=== PATIENT | female | born 1980 | race Caucasian/White ===

== ENCOUNTER 2017-06-09 23:56 | Emergency (ER) | payer OTHER ==
[~2017-06-09] VITALS: Ht 160 cm; Wt 64.5 kg
[2017-06-10 00:16] VITALS: BP 173/119; PULSE 77; RESP 16; O2SAT 100
--- NOTE | 2017-06-10 01:17 | ED.REPORT ---
HPI-Dental/Mouth Prob Date of Service Jun 10, 2017 ED Provider: Ankush Flores MD Patient is 37 year old female who presents to the ED complaining of dental pain onset 2 weeks ago. Associated symptoms include difficulty eating, increased swelling and pain that radiates into her face. The patient reports that she saw her dentist a week ago and she was told they were unable to do anything with the tooth due to her high blood pressure. She was given and finished a course of Penicillin and Tylenol with Codeine. Nursing Notes Stated Complaint: TOOTH PAIN Chief Complaint: Dental Nursing Notes Reviewed: Yes Allergies: Coded Allergies: Sulfa (Sulfonamide Antibiotics) (Verified Allergy, Unknown, 06/10/17) lactose (Verified Allergy, Unknown, 06/10/17) sumatriptan (Verified Allergy, Unknown, 06/10/17) General Time Seen by MD: 01:05 Chief Complaint Tooth pain Hx Obtained From: Patient Arrived By: Walk-in Onset Occurred: More than a week ago... (2 weeks) Symptom Duration: Since onset Quality: Painful Radiation: : Face Severity: Current: Moderate Similar Sx Previous: Yes Past Medical History Past Medical History none reported Smoking History Unknown if Ever Smoker Ambulatory Status Independent Review of Systems Constitutional: Denies: Chills, Fever Ears / Nose / Throat: Reports: Mouth pain, Denies: Throat swelling Respiratory: Denies: Non-productive cough, Shortness of breath Complete sys rev & neg: except as marked. Skin: Denies Itching, Denies Rash Physical Exam Initial Vital Signs Vital Signs (First) Date Time Temp Pulse Resp B/P Pulse Ox O2 Delivery O2 Flow Rate FiO2 06/10/17 00:16 36.7 77 16 173/119 100 Room Air Initial VS: Reviewed ENT: Atraumatic, Airway patent, Mucous membranes moist significant decay of tooth 10 no swelling of adjacent tissue or evidence of abscess Neck: Atraumatic, Supple, No swelling General/Constitutional: Awake, Alert Head / Eyes: Atraumatic, Normocephalic, PERRL, EOMI Respiratory / Chest: Atraumatic, Breath sounds NL, Breath sounds = bilat, No respiratory distress Cardiovascular: Heart rate NL, Regular rhythm, Heart sounds NL, No gallop, No murmurs, No rubs Neurologic: Oriented X3, Speech NL Upper Extremity / MS: Atraumatic, Full range of motion Lower Extremity / Pelvis / MS: Atraumatic, Full range of motion Skin: Atraumatic, Color NL, No rash, Warm, Dry Psychiatric: Affect NL, Mood NL Re-Eval/Medical Decision Med Decision/Clinical Course Patient is a 37-year-old female who presents with dental pain. Examination reveals significant caries about tooth #9. Considered other possible causes of dental pain including periapical abscess, gingivitis, Richard's angina, sinusitis , and molar impaction but these are unlikely based on the history and exam. Discussed with the patient resources available on discharge. Also reviewed precautions for return to the ED and the importance of f/u with a dentist, which she agreed to do. Patient was provided with a limited supply of [place] for pain. I do not feel that further treatment with antibiotics is indicated at this time. Expressed importance of dental follow-up and that resources for addressing dental problems in the emergency department are quite limited. Re-Evaluation/Progress : Time of Eval: 01:26 Re-Evaluation/Progress Note: Discussed plan for follow up with dentist and discharge. Patient understands and agrees to plan. All questions were addressed. Counseled Regarding: Diagnosis, Need for follow-up, When/why to return to ED Discharge & Departure Primary Impression: Toothache Additional Impression: Dental caries Disposition: Home Discharge Condition All VS Reviewed: Yes Condition: Stable Additional Instructions: Thank you for seeking care at the emergency room. We are limited with treatment in the ED and it is important that you follow up with your dentist for this reason. Our primary goal today in the Emergency Department was to evaluate you for any life-threatening conditions. Your evaluation was reassuring. You will be discharged with a limited prescription for Vicodin You can also take ibuprofen for pain. You should follow-up with your dentist tomorrow morning. You should return to the Emergency Department immediately if you develop difficulty swallowing, difficulty breathing, increasing pain or any other concerning signs or symptoms. Thank you for letting us partake in your care today. You have been prescribed a narcotic for pain relief. These drugs are usually combined with acetaminophen (Tylenol#3, Percocet, Darvocet, Anexsia, Vicodin) or aspirin (Empirin#3, Percodan, Synalogs-DC) for increased effect. Narcotics act on the central nervous system to reduce pain; they also impair mental alertness and physical abilities. We advise you not to drink alcohol, drive a car, or operate dangerous equipment when you are taking these drugs. You can lessen stomach irritation from your medicine by taking it with meals or a full glass of water. Common side effects of narcotics are: Nausea and vomiting , heartburn, constipation, dizziness, sleepiness, and mood changes. If you have bothersome side effects or symptoms of an allergic reaction (itching, hives, rash), stop taking your medicine and call your doctor or the emergency room right away. Please keep your narcotic medicine well out of the reach of children. Referrals: Twila Merchant MD (PCP) Scribe Attestation Portions of this note were transcribed by Andria Etienne. I, Dr. Flores personally performed the history, physical exam and medical decision-making; I reviewed and confirmed the accuracy of the information in the transcribed note. Signed by: Samantha Rausch, 06/09/17 copies to: Twila Merchant MD, Beck O MD Jun 10, 2017 01:17 Fauzia Etienne Jun 10, 2017 01:26
[2017-06-10] MEDS ORDERED: _HYDROcodone/APAP 5-325 mg Tablet PO PRN (01:25)
[2017-06-10 02:31] VITALS: BP 165/101; PULSE 75; RESP 16; O2SAT 95
== END 2017-06-10 02:09 | disposition home or self-care (01) ==
LOC: SED 23:56
DX: K08.89 Other specified disorders of teeth and supporting structures (principal); K02.9 Dental caries, unspecified; Z88.2 Allergy status to sulfonamides; Z88.8 Allergy status to other drugs, medicaments and biological substances; E73.9 Lactose intolerance, unspecified